=== PATIENT | male | born 1970 | race African-American/Black ===

== ENCOUNTER 2023-04-09 11:09 | Emergency (ER) | payer OTHER, SELFPAY ==
[2023-04-09 11:24] VITALS: BP 166/100; PULSE 65; RESP 14; TEMP 37.4; O2SAT 100
--- NOTE | 2023-04-09 11:39 | ED.URI ---
HPI - URI/Sore Throat General Chief Complaint: Upper Respiratory Infection Stated Complaint: Sinus Source: patient and RN notes reviewed History of Present Illness HPI Narrative: 52-year-old male presents to urgent care with complaints of a productive x1 and half days. Patient states he noticed a little tickle in his chest Tuesday night and woke up feeling like a truck hit him. Pt states Tuesday he was feeling a little better so he tried to go to work but left after 3 horus b/c he still didn't feel well. Pt states he is feeling better but now he is coughing up yellow sputum. Pt denies any SOB, chest pain, fevers, chills, congestion, ear pain, or sore throat. Pt has taken Dayquil at home. Related Data Allergies Allergy/AdvReac Type Severity Reaction Status Date / Time No Known Allergies Allergy Mild Verified 04/09/23 11:28 Review of Systems Review of Systems: Pertinent positives and pertinent negatives per HPI. PMFSH Comments At the time of my signature, I reviewed and agree with the nursing past medical, surgical, social, and family history. There is no relevant family history pertinent to the patient complaint. Exam Narrative: GENERAL: This is a well-nourished, well-developed patient, in no apparent distress. HEAD: normocephalic, atraumatic. EYES: Sclera clear/white. Vision is grossly intact. EARS: External ears normal, auditory canals clear and without drainage, TMs normal without perforation. Hearing grossly intact. NOSE: External nose normal with no obvious nasal discharge, nares without redness, no rhinorrhea. THROAT: Mucous membranes moist, posterior pharynx clear. NECK: Neck supple, non-tender without lymphadenopathy, masses or thyromegaly. CARDIOVASCULAR: Regular rate and rhythm without murmurs, gallops, or rubs. RESPIRATORY: Clear to auscultation. Breath sounds equal bilaterally. No wheezes, rales, or rhonchi. SKIN: warm, intact with no suspicious lesions or rash, good texture and turgor. NEURO: awake, alert, and oriented to person, place and time. There were no obvious focal neurologic abnormalities. EXTREMITIES: No clubbing, cyanosis, or edema. No joint tenderness, effusion, or edema noted. BACK: Nontender without deformity or crepitus. No flank tenderness. Course Course Level of Care: Express Care Visit Vital Signs Vital signs: Vital Signs Temperature 99.3 F 04/09/23 11:24 Pulse Rate 65 04/09/23 11:24 Respiratory Rate 14 04/09/23 11:24 Blood Pressure 166/100 H 04/09/23 11:24 Pulse Oximetry 100 04/09/23 11:24 Oxygen Delivery Room Air 04/09/23 11:24 Temperature 99.3 F 04/09/23 11:24 Pulse Rate 65 04/09/23 11:24 Respiratory Rate 14 04/09/23 11:24 Blood Pressure 166/100 H 04/09/23 11:24 Pulse Oximetry 100 04/09/23 11:24 Oxygen Delivery Room Air 04/09/23 11:24 reviewed MDM - URI/Sore Throat MDM Narrative Medical decision making narrative: Start taking Mucinex at home to help with the mucous. Take the Tessalon Perles as directed. Increase your fluids and Vitamin C. Humidifier in the bedroom can help too. Follow up with your center maker hand next week if symptoms persist. If you develop any new or worsening symptoms, go to the ER. Differential Diagnosis Differential diagnosis: Likely upper respiratory infection, viral infection and bronchitis Critical Care Time Critical Care Time Critical Care Time: No Discharge Plan Discharge Clinical Impression: Viral infection Patient Disposition: Home, Self-Care Condition: Stable Instructions: Viral Syndrome (ED) Additional Instructions: Start taking Mucinex at home to help with the mucous. Take the Tessalon Perles as directed. Increase your fluids and Vitamin C. Humidifier in the bedroom can help too. Follow up with your center maker hand next week if symptoms persist. If you develop any new or worsening symptoms, go to the ER. Prescriptions: New benzonatate 200 mg c
== END 2023-04-09 11:47 | disposition home or self-care (01) ==
PROVIDERS: Emergency Provider Nurse Practitioner Family
DX: B34.9 Viral infection, unspecified (principal); I10 Essential (primary) hypertension
CPT/HCPCS: 99213; G0463